=== PATIENT | female | born 1975 | race Caucasian/White ===

== ENCOUNTER 2019-06-14 03:35 | Emergency (ER) | payer BC ==
[~2019-06-14] VITALS: Ht 175.3 cm; Wt 122.5 kg
[~2019-06-14 03:35] MED LIST: ACETAMINOPHEN-1 EAC1 PO; ACID REDUCER; BACTRIM DS TAB1 EACH PO; CLEOCIN HCL300 MG PO; HYDROCODON-ACE1 EAC7 PO; LORTABELXR PO; NORCO 5-325 TA1 EACH PO; OMEPRAZOLE 20 M20 M1; PHENERGAN 25 MG25 M1 PO; PREDNISONE50 MG PO; PRILOSEC40 MG PO; PYRIDIUM200 MG PO; VICODIN 5-5001 EACH PO; ZPAK PO
[2019-06-14 04:12] LABS: INFLUENZA A ANTIGEN Negative (Negative); INFLUENZA B ANTIGEN Negative (Negative)
[2019-06-14] MEDS ORDERED: PREDNISONE50 MG PO (05:13)
[2019-06-14] MEDS ORDERED: ALBUTEROL2.5 MG/31 INH (05:13)
[2019-06-14] MEDS ORDERED: PROAIR HFA8.5 GM INH (05:13)
[2019-06-14] MEDS ORDERED: HYDROCODONE-CH115 ML PO (05:13)
[2019-06-14] MEDS ORDERED: AUGMENTIN 875-1 EACH PO (05:26)
[2019-06-14 05:31] VITALS: BP 138/65
== END 2019-06-14 05:31 | disposition home or self-care (01) ==
LOC: M.ERS 03:35
PROVIDERS: Emergency Medicine
DX: J40 Bronchitis, not specified as acute or chronic (principal); Z98.51 Tubal ligation status